=== PATIENT | male | born 1970 | race Caucasian/White ===

== ENCOUNTER → 2019-02-07 | Outpatient (CLI) | payer BC ==
--- NOTE | 2019-02-07 22:59 | MR ---
EXAMINATION TYPE: MR lumbar spine wo con DATE OF EXAM: 02/07/2019 COMPARISON: NONE HISTORY: Low back pain x 12 weeks into left buttocks. Radiculopathy per order. TECHNIQUE: Multiplanar, multisequence imaging of the lumbar spine is performed without IV contrast. FINDINGS: Sagittal images of the lumbar spine show vertebral body heights to appear satisfactory. Ali gnment is straightened. Multilevel disc desiccation is seen L3-L4 through the L5-S1 level. There is moderate disc space narrowing L4-L5 level. Posterior disc herniation L5-S1 level is seen on sagittal images. The conus medullaris is normal in position and signal ending mid L1 level. Heterogeneous to M odic type II endplate changes are seen L4-L5 and L5-S1 endplates with mild to moderate anterior spurr ing L4-5 level noted. Axial images show the T12-L1 level to appear within normal limits. Axial images at the L1-L2 and L2-L3 levels show mild facet arthropathy otherwise are unremarkable. Axial images at L3-L4 level shows subtle spondylolisthesis with mild facet degenerative changes and l igamenta flavum hypertrophy and mild broad based posterior disc protrusion mildly effacing the anteri or thecal sac with mild bilateral inferior inferior neural foraminal narrowing. Axial images at the L4-L5 level mild facet degenerative changes bilaterally. There is mild broad disc bulge mildly effaces the anterior thecal sac with mild bilateral anterior inferior neural foraminal narrowing noted. Axial images at the L5-S1 level show large left paracentral/foraminal disc protrusion axial image 4 m easuring 2.5 cm transversely by 6 mm AP diameter with mild facet arthropathy bilaterally. There is ef facement of the anterolateral thecal sac and lateral recess on the left with mild left-sided anterior inferior neural foraminal narrowing. Right-sided neural foramen is patent. Effacement of central lef t S1 nerve is felt present. No suspicious incidental retroperitoneal findings are seen. IMPRESSION: Multilevel degenerative changes lumbar spine as detailed above, attention to L5-S1 level where most prominent disc herniation effaces anterolateral thecal sac and left lateral recess and lik moisés central left S1 nerve.
== END | disposition home or self-care (01) ==
LOC: RADMRIMAIN 19:05
PROVIDERS: ATTEND Family Medicine
DX: M51.17 Intervertebral disc disorders with radiculopathy, lumbosacral region (principal); M47.26 Other spondylosis with radiculopathy, lumbar region
CPT/HCPCS: 72148

== ENCOUNTER → 2019-03-09 | Outpatient (CLI) | payer BC ==
[2019-03-09 11:23] VITALS: BP 179/105; PULSE 84; RESP 16
--- NOTE | 2019-03-09 11:50 | P.PAINCN ---
History of Present Illness - Reason for Consult Consult date: 03/09/19 - History of Present Illness This is an initial consultation visit for this 48 years old male with a chronic history of severe low back pain, started September 2018, he denies any initiating event, and he reported that the pain is constant and increases with any activity, localized in the left buttock area radiated to the left lower extremity, he needed chiropractics without any significant improvement, intensity of the pain interfering with the quality of life, he denies any fever or night sweats, denies any change in the bowel movements or urination, occasional weakness in his left lower extremity, he continued to walk without difficulty. Past Medical History Past Medical History: No Reported History History of Any Multi-Drug Resistant Organisms: None Reported Past Surgical History: Orthopedic Surgery Past Anesthesia/Blood Transfusion Reactions: No Reported Reaction Past Psychological History: No Psychological Hx Reported Smoking Status: Never smoker Past Alcohol Use History: None Reported Past Drug Use History: Marijuana Additional Drug Use History / Comment(s): last 03/08/2019 Medications and Allergies Home Medications Medication Instructions Recorded Confirmed Type Ibuprofen 1 tab PO TID 03/09/19 03/09/19 History Allergies Allergy/AdvReac Type Severity Reaction Status Date / Time No Known Allergies Allergy Verified 03/09/19 11:11 Physical Exam Vitals: Vital Signs Pulse Resp BP Pulse Ox 03/09/19 11:12 84 16 179/105 98 Intake and Output 03/08/19 03/09/19 03/09/19 22:59 06:59 14:59 Other: Weight 102.058 kg Social history : not smoker , NO ETOH , use marijuana. Review of Systems : - Constitutional : no chills , no fever , no night sweats , - Ears : no ear discharge , no change in hearing -Nose, Mouth ,Throat ; no bleeding gums, no sore throat , no epistaxis , -Cardiovascular : Denies chest pain, , no orthopnea , no palpitation -Respiratory : Denies cough , no dyspnea , no hemoptysis -Gastrointestinal : no change in bowel habits , no coffee-ground emesis . -Genitourinary : No hematuria , no discharge , no incontinence, -Musculoskeletal : No gait dysfunction , report low back pain , - Neurological : no ataxia , no tremor , no sezure , -Psychatric : no suicidal ideation no hallucination - Endocrine : no cold intolerence , no polyuria , no polydypsia , -Hematologic : no easy bleeding , no easy brusing , -Allergic / immm : no angioedema , no wheezing ,no allergic rhinitis -Integumentary : no brttle nails , no change hair / nails , no foot/leg ulcers . Physical Examinations : -Constitutional : Cooperative , not in acute distress . -HEENT : nech ; supple , no Lymphadenopathy , no Thyromegaly , :eyes : no icterus, no photophobia . ENT : normal oropharynx , no Thrush - Respiratory : Chest clear to auscultations Bilaterally , no wheezing . - Cardiovascular : regular rate and rhythem , S1 , S2 , no S3 , no S4. - Gastrointestina l: abdomen soft no tenderness , no organomegally . - Genitourinary : Defferred . -Integumentary : No cellulitis , no ulcers , normal skin turgor , no cyanotic . - neurologic : Cranial nerve II to XII intact , no focal neurological deffecit -psychatric : alert , oriented X 3 , appropriate affect , intact judgment and insight . -Lymphatic : no Lymphadenopathy. - musculoskeltal: Lumber spine moter stegnth lower extremities ,thigh and legs 5/5 Right side , 5/5 Left side deep tendon reflexes : normal Knee Jerk , normal ankle Jerk lumber facet Loading Test negative bilaterally Range of motion of the lumbar spine Flexion 30 degrees, extension 10 degrees strait leg raising test , positive at at 30 degree on the left side and its negative on the right side Fabere test negative RT and positive LT . Severe tenderness over the piriformis muscle on the left side Results Comments: MRI of the lumbar spine done [facility]= L3 4 spondylolisthesis and facet arthropathy and foraminal narrowing, L4 5 degenerative disc disease and facet arthropathy, L5-S1 left paracentral disc protrusion and left foraminal narrowing and facet arthropathy Assessment and Plan Plan: Assessment and plan=1-lumbar radiculopathy left L4 5 and L5-S1 distribution 2-lumbar disc protrusion 3-lumbar foraminal narrowing 4-lumbar spondylosis with lumbar facet arthropathy. 5-piriformis muscle spasm on the left side. Patient would benefit from left-sided transforaminal epidural steroid injection at L4 5/L5-S1 , and left piriformis muscle injection Patient blood pressure significantly elevated and explained any associated the primary care regarding his hypertension management Time with Patient: Greater than 30 PQRS Measure Charge Sheet Measure #130: Documentation of Current Meds in Medical Chart: Patient's medications documented in chart Measure #226: Tobacco Use: Screen & Cessation Intervention: Pt not a tobacco user Measure #111: Pneumonia Vaccination: Pneumococcal vaccine NOT administered or previously given Measure #47: Advance Care Plan: Advance care planning discussed & documented, pt chose/unable to give Measure #412: Opioid Treatment Agreement: No documentation of signed opioid treatment agreement Measure #408: Opioid Therapy Follow-up Evaluation: Patient had NO f/u eval minimum every 3 months during opioid therapy Measure #317: Preventitive Care & Scrn High Bld Press & F/U: Pre-hypertensive or hypertensive BP documented, pt will f/u with PCP Measure #128: Body Mass Index (BMI) Screening & Follow-up: BMI documented ABOVE normal parameters - f/u documented Measure #131: Pain Assessment & Follow-up: Pain positive & plan documented, Follow-up scheduled Measure #431: Unhealthy Alcohol Use Preventative Care & Scrn: Patient not i dentified as an unhealthy alcohol user PQRS Narrative: Smoking Status Never smoker Do You Want the Pneumonia No Vaccine AT THIS TIME? Blood Pressure 179/105 Pain Intensity [Left Lower 9 Buttock] Scale Used Numeric (1 - 10) Hx Alcohol Use (MH) No Home Medications: Ambulatory Orders Ibuprofen 1 tab PO TID 03/09/19
== END | disposition home or self-care (01) ==
LOC: PNWHC3 11:02
PROVIDERS: ATTEND Specialist
DX: G89.29 Other chronic pain (principal); M48.061 Spinal stenosis, lumbar region without neurogenic claudication; M51.16 Intervertebral disc disorders with radiculopathy, lumbar region; M47.26 Other spondylosis with radiculopathy, lumbar region; M46.86 Other specified inflammatory spondylopathies, lumbar region; M62.838 Other muscle spasm; Z79.1 Long term (current) use of non-steroidal anti-inflammatories (NSAID)
CPT/HCPCS: 99211

== ENCOUNTER 2019-03-17 07:07 | Day surgery (SDC) | payer BC ==
[2019-03-16 09:46] VITALS: BMI 29.7
[~2019-03-17 07:07] MED LIST: LACTATED RINGERS 1,000 ML IV SCH
[2019-03-17] MEDS ORDERED: LIDOCAINE 1% 20 ML VIAL (10MG/ML) FOR IV START INTRADERMA ONE (08:00)
[2019-03-17 08:06] VITALS: TEMP 97.7
--- NOTE | 2019-03-17 09:15 | P.PCN ---
Date of Procedure: 03/17/19 Procedure(s) Performed: PREOPERATIVE DIAGNOSIS:1- Lumbar radiculopathy in left L4-5, L5-S1 distribution. 2-piriformis muscle spasm. 3-lumbar foraminal stenosis POSTOPERATIVE DIAGNOSIS: Same as preop diagnosis PROCEDURE 1. Transforaminal epidural steroid injection under fluoroscopic guidance at Left L4-5 , L5-S1 level. 2. Lumbar epidurogram. 3. Trigger point injection left side piriformis muscles ( one trigger point ). ANESTHESIA: moderate sedation with intravenous Versed 4 mg and fentanyle 100 micrograms EBL: Minimal PROCEDURE INDICATION: The patient with low back pain and radiculopathy symptoms unresponsive to conservative treatment. PROCEDURE DESCRIPTION / TECHNIQUE: The patient was seen and identified in the preoperative area. Risks, benefits, complications, and alternatives were discussed with the patient. The patient agreed to proceed with the procedure and signed the consent. IV was started, and vital signs were stable. Patient was taken to the OR and time out was completed. The patient was placed in the prone position on procedure table and a pillow was placed under the abdomen to reduce lumbar lordosis. The lumbosacral area was prepped and draped in the usual sterile fashion. Critical pause was taken. Vital signs were closely monitored during the procedure. Conscious sedation was used during the procedure to decrease patient s anxiety. Using oblique fluoroscopy, the chin of the ``Edgar dog at left L4-5 level was identified, and the skin and deeper tissues just below was localized with 1% lidocaine. Subsequently, a 22-gauge 3.5-inch spinal needle was advanced under a tunneled view fluoroscopic guidance just underneath the chin of the ``Edgar dog at the left L4-5 . Under lateral fluoroscopy, the needle was then advanced to the posterior border of the Left L4-5 interforaminal space. After negative aspiration of CSF and blood and with no paresthesias, 1 mL Isovue 200 contrast dye was injected excellent epidurogram and outlining of the Left L4-5 nerve root Subsequently, 3 mL of block solution containing 40 mg Depo-Medrol and 2 mL of Lidocaine 1% was injected. Needle was removed and the same procedure was repeated at the left L5-S1 . Then after that the left piriformis muscle injection done in a sterile technique using 25-gauge needle total of 4 ML of proparacaine 0.5% injected after negative aspiration patient tolerated the procedure well without any complications. COMPLICATIONS:none DISPOSITION / PLANS: The patient was placed in a supine position and transferred to the recovery area in a stable condition for observation. There was no evidence of lower extremity motor or sensory deficit after the procedure. Patient was discharged from the recovery room after meeting discharge criteria. Home discharge instructions were given to the patient by the staff. The patient was reexamined prior to discharge.
[2019-03-17] MEDS ORDERED: IV FLUID CONTINUATION 1,000 ML IV ONE (09:17)
[2019-03-17 09:37] VITALS: BP 148/99; PULSE 58; RESP 16
--- NOTE | 2019-03-17 09:58 | FL ---
EXAMINATION TYPE: FL guided pain mgmt statistic DATE OF EXAM: 03/17/2019 CLINICAL HISTORY: Low back pain. TECHNIQUE: Fluoroscopy. COMPARISON: None. FINDINGS: Fluoroscopic guidance was provided during pain relief procedure performed by Dr. Schuler . A total of 7 seconds of fluoroscopic time was utilized during the procedure and 1 spot images are acquired. Images acquired shows needle localization at multiple levels within the lumbar spine. IMPRESSION: As Above.
== END 2019-03-17 09:56 | disposition home or self-care (01) ==
LOC: ORPAIN 07:07
PROVIDERS: ATTEND Specialist
DX: G89.29 Other chronic pain (principal); M48.061 Spinal stenosis, lumbar region without neurogenic claudication; M62.830 Muscle spasm of back; M51.16 Intervertebral disc disorders with radiculopathy, lumbar region; M47.9 Spondylosis, unspecified; Z79.1 Long term (current) use of non-steroidal anti-inflammatories (NSAID)
CPT/HCPCS: 20552; 64483; 64484; J2250; J1030; J3010; Q9966; 99152

== ENCOUNTER → 2019-03-28 | Outpatient (CLI) | payer BC ==
[2019-03-28 13:58] VITALS: BP 179/111; PULSE 82; RESP 16
--- NOTE | 2019-03-28 14:17 | P.PN ---
Subjective Progress Note Date: 03/28/19 This is a 48-year-old gentleman with history of left leg pain with paresthesia down to the left foot. The patient did not get any relief from his last injection which was transforaminal epidural steroid injection at the L4 5 and L5-S1 levels. He still feels pain that starts in his buttock area and radiates down to his left foot. The patient takes ibuprofen for this pain. 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 This pain gets worse when he tries to cross his left leg on the right one. Today, pt denies new-onset weakness, bowel/bladder incontinence, or any other signs or symptoms of cauda equina syndrome. There are no signs of acute intoxication, and no indications of medication diversion or overuse. In addition to above, 13-point review of systems is also negative for chest pain, shortness of breath, changes in vision, changes in hearing, new onset weakness, abdominal pain, diarrhea, extreme fatigue, malaise, fever, skin changes, homicidal or suicidal ideation, or bowel or bladder incontinence. Vital Signs: Reviewed in EMR Gen: AAOx3, NAD HEENT: PERRLA,hearing grossly normal Pulm: resp unlabored, Heart: Regular Neck: supple, trachea midline Neuro exam of the lower extremities: Decreased muscle strength to 4 out of 5 in general in the left lower extremity. Straight leg raising test: Sadi's test: Range of motion of the lumbar spine: Facet loading test: Tenderness in the paravertebral musculature: Positive tenderness in the left buttock area Neuro: CN II-XII grossly intact, Imaging: Reviewed in EMR/chart Assessment: Left lumbar radiculopathy Possible left piriformis muscle syndrome Plan: 1. Explanation: Opioid and psychological risk scores were reviewed. Diagnoses, prognoses, and multiple treatment options including but not limited to physical therapy, interventional therapies, adjuvant medical therapies, narcotic m edication therapies, and surgery were discussed with the patient and all questions were answered to the patient's satisfaction. 2. Opioid agreement: Signed with the patient and the patient is warned not to use opioids while driving or before driving and not to combine opioids with benzodiazepines or alcohol. 3. Counseling: The patient was counseled extensively on SMOKING CESSATION, BODY MASS INDEX, EXERCISE. Specifically, the patient was instructed regarding the importance of smoking cessation, obesity, and exercise in the context of both chronic pain and overall health. 4. Procedures: Scheduled for left piriformis muscle injection under fluoroscopic guidance 5. Consultations: None 6. Investigations: None 7. Medications: Neurontin 300 mg 1 by mouth daily at bedtime 8. Disposition: Return to the above-mentioned procedure as soon as possible PQRS measures: 1-Patient's medications are documented in the chart. 2-Tobacco use is negative, counseling given 3-Patient has not had a pneumococcal vaccine. 4-Advanced care planning discussed, patient unable to give 5-Opioid contract signed with the patient. 6-Pain positive, follow-up visit or procedure scheduled 7-Patient's blood pressure measured and documented above normal limits. The patient will follow up with his primary care physician. 8-Patient's weight was measured, and body mass index ABOVE the normal limits, and counseling was done. Patient instructed to follow up with PCP. 9-Patient WAS NOT identified as an unhealthy alcohol user. Controlled Substance Measures Is patient prescribed a controlled substance at discharge?: Yes When asked, does pt state using other controlled substances?: No If prescribed controlled substance>3 days was MAPS reviewed?: Yes If Rx opioid, was Start Talking consent form obtained?: Yes If opioid is for acute pain is fill amount 7 days or less?: No Was information provided regarding opioid addiction?: Yes Objective - Vital Signs Vital signs: Vital Signs Temp Pulse 82 03/28/19 13:52 Resp 16 03/28/19 13:52 BP 179/111 03/28/19 13:52 Pulse Ox 98 03/28/19 13:52 Intake & Output 03/27/19 03/28/19 03/28/19 18:59 06:59 18:59 Weight 102.058 kg
== END | disposition home or self-care (01) ==
LOC: PNWHC3 13:39
PROVIDERS: ATTEND Anesthesiology
DX: M54.16 Radiculopathy, lumbar region (principal); Z79.899 Other long term (current) drug therapy
CPT/HCPCS: 99211

== ENCOUNTER 2019-04-06 07:32 | Day surgery (SDC) | payer BC ==
[2019-04-04 15:52] VITALS: BMI 29.7
[2019-04-06 07:42] VITALS: PULSE 64; RESP 16; TEMP 97.5
[2019-04-06] MEDS ORDERED: LIDOCAINE 1% 20 ML VIAL (10MG/ML) FOR IV START INTRADERMA ONE (07:52)
--- NOTE | 2019-04-06 08:47 | P.PCN ---
Date of Procedure: 04/06/19 Preoperative Diagnosis: Left piriformis muscle syndrome Postoperative Diagnosis: Same as above Procedure(s) Performed: Left piriformis muscle injection under fluoroscopic guidance Anesthesia: other (Local with IV moderate conscious sedation with fentanyl and Versed) Surgeon: Cruzito Jack Pathology: none sent Condition: stable Disposition: PACU Description of Procedure: The patient was seen in preop holding area consent was obtained and was brought into the procedure room and placed in prone position. Skin was prepped with DuraPrep and draped in a sterile manner. Lidocaine 1% was used to numb the skin up at the target points which was midway between the lower segments of the sacrum and the greater trochanter on the left side. I then used 22-gauge 3-1/2 inch Quincke spinal needle to go through the skin and feel two pops of the fascia before entering the piriformis muscle I then injected 1 mL of Omnipaque which showed typical spread across the piriformis muscle after that I injected 5 MLS of preservative free lidocaine 1% and 10 mg of Decadron. The needle then was removed. Patient tolerated procedure well. No paresthesia was experienced with the patient during the procedure.
[2019-04-06] MEDS ORDERED: IV FLUID CONTINUATION 1,000 ML IV ONE ×2 (08:48)
[2019-04-06 08:51] VITALS: BP 162/100
--- NOTE | 2019-04-06 09:49 | FL ---
Fluoroscopy HISTORY: Pain 4 seconds fluoroscopy time supplied to the referring clinician. 1 intraoperative C-arm images docume nt the procedure. See dictated report from anesthesia.
== END 2019-04-06 09:18 | disposition home or self-care (01) ==
LOC: ORPAIN 07:32
PROVIDERS: ATTEND Anesthesiology
DX: G57.02 Lesion of sciatic nerve, left lower limb (principal)
CPT/HCPCS: 20552; J2250; J1100; J2001; J3010; Q9966; 99152